=== PATIENT | male | born 1960 | race Caucasian/White ===

== ENCOUNTER 2017-10-20 17:29 | Emergency (ER) | payer OTHER ==
[2017-10-20] MEDS ORDERED: SOD CHLORIDE 0.9% 1,000 ML IV (17:47)
[2017-10-20] MEDS: NITROGLYCERIN (SL) 0.4 MG TAB SL (18:16)
[2017-10-20] MEDS: ASPIRIN 81 MG TAB PO (18:16)
[2017-10-20] MEDS: LORAZEPAM 2 MG INJ IV (18:27)
[2017-10-20] MEDS: ENALAPRILAT 1.25 MG INJ IV (18:28)
[2017-10-20 18:46] LABS: ADD MAN DIFF? NO
[2017-10-20 18:51] LABS: BASOPHIL # 0.1 10^3/ul (0.0-0.1); BASOPHILS % 1.1 % (0.0-2.0); EOSINOPHILS # 0.2 10^3/ul (0.0-0.5); HEMOGLOBIN 12.9 g/dl (14.0-18.0); LYMPHOCYTES # 2.3 10^3/ul (0.8-2.9); LYMPHOCYTES % 26.2 % (15.0-51.0); MEAN CORPUSCULAR HEMOGLOBIN 28.1 pg (29.0-33.0); MEAN CORPUSCULAR HGB CONC 33.1 g/dl (32.0-37.0); MEAN PLATELET VOLUME 9.4 fl (7.4-10.4); MONOCYTE # 0.8 10^3/ul (0.3-0.9); MONOCYTES % 8.6 % (0.0-11.0); NEUTROPHIL # 5.4 10^3/ul (1.6-7.5); NEUTROPHILS % 61.4 % (39.0-77.0); PLATELET COUNT 278 10^3/UL (140-415); RED BLOOD COUNT 4.59 10^6/ul (4.70-6.10); RED CELL DISTRIBUTION WIDTH 14.7 % (11.5-14.5)
[2017-10-20 18:51] LABS: WHITE BLOOD COUNT 8.7 10^3/ul (4.8-10.8)
[2017-10-20 19:12] LABS: ALANINE AMINOTRANSFERASE 25 IU/L (13-69); ALBUMIN/GLOBULIN RATIO 1.37; ALKALINE PHOSPHATASE 94 IU/L (42-121); ANION GAP 14 (8-16); ASPARTATE AMINO TRANSFERASE 22 IU/L (15-46); BILIRUBIN,INDIRECT 0.3 mg/dl (0-1.1); BILIRUBIN,TOTAL 0.3 mg/dl (0.2-1.3); BLOOD UREA NITROGEN 17 mg/dl (7-20); CARBON DIOXIDE 28 mmol/L (21-31); CHLORIDE 107 mmol/L (97-110); CREATININE 0.69 mg/dl (0.61-1.24); GLUCOSE 107 mg/dl (70-220); LIPASE 48 U/L (23-300); POTASSIUM 4.4 mmol/L (3.5-5.1); SODIUM 145 mmol/L (135-144); TOTAL PROTEIN 6.9 g/dl (6.1-8.1)
[2017-10-20 19:19] LABS: B-TYPE NATRIURETIC PEPTIDE 341 PG/ML (0-125)
[2017-10-20 19:29] LABS: TROPONIN-I < 0.012 ng/ml (0.000-0.120)
== END 2017-10-20 22:04 | disposition short-term general hospital (02) ==
LOC: E/R 17:29
DX: R07.9 Chest pain, unspecified (principal); I10 Essential (primary) hypertension; F15.10 Other stimulant abuse, uncomplicated; I50.23 Acute on chronic systolic (congestive) heart failure; E11.9 Type 2 diabetes mellitus without complications; J45.909 Unspecified asthma, uncomplicated; Z79.82 Long term (current) use of aspirin; Z79.84 Long term (current) use of oral hypoglycemic drugs; Z87.891 Personal history of nicotine dependence
CPT/HCPCS: 36415; 71045; 80053; 82962; 83690; 83880; 84484; 85025; 93005; 96374; 96375; 99285-25

== ENCOUNTER 2017-10-21 10:28 | Emergency (ER) | payer OTHER ==
[2017-10-21] MEDS ORDERED: ASPIRIN 325 MG TAB PO (11:00)
[2017-10-21 11:13] LABS: ADD MAN DIFF? NO
[2017-10-21 11:16] LABS: WHITE BLOOD COUNT 9.7 10^3/ul (4.8-10.8)
[2017-10-21 11:16] LABS: BASOPHIL # 0.1 10^3/ul (0.0-0.1); BASOPHILS % 0.9 % (0.0-2.0); EOSINOPHILS # 0.2 10^3/ul (0.0-0.5); HEMATOCRIT 39.2 % (42.0-52.0); HEMOGLOBIN 12.7 g/dl (14.0-18.0); LYMPHOCYTES # 2.1 10^3/ul (0.8-2.9); LYMPHOCYTES % 21.7 % (15.0-51.0); MEAN CORPUSCULAR HEMOGLOBIN 28.2 pg (29.0-33.0); MEAN CORPUSCULAR HGB CONC 32.4 g/dl (32.0-37.0); MEAN CORPUSCULAR VOLUME 87.1 fl (82.0-101.0); MEAN PLATELET VOLUME 9.4 fl (7.4-10.4); MONOCYTE # 0.8 10^3/ul (0.3-0.9); MONOCYTES % 7.8 % (0.0-11.0); NEUTROPHIL # 6.5 10^3/ul (1.6-7.5); PLATELET COUNT 284 10^3/UL (140-415); RED CELL DISTRIBUTION WIDTH 14.4 % (11.5-14.5)
[2017-10-21 11:33] LABS: ANION GAP 16 (8-16); BLOOD UREA NITROGEN 18 mg/dl (7-20); CALCIUM 9.4 mg/dl (8.4-10.2); CARBON DIOXIDE 27 mmol/L (21-31); CHLORIDE 103 mmol/L (97-110); CREATININE 0.82 mg/dl (0.61-1.24); GLUCOSE 123 mg/dl (70-220); POTASSIUM 4.5 mmol/L (3.5-5.1); SODIUM 141 mmol/L (135-144)
[2017-10-21 11:36] LABS: INR 0.88; PT RATIO 0.9
[2017-10-21 11:45] LABS: B-TYPE NATRIURETIC PEPTIDE 110 PG/ML (0-125)
[2017-10-21 11:46] LABS: TROPONIN-I < 0.012 ng/ml (0.000-0.120)
[2017-10-21 12:50] LABS: PARTIAL THROMBOPLASTIN TIME 32.1 Sec (25.0-35.0)
== END 2017-10-21 14:10 | disposition left against medical advice (07) ==
LOC: E/R 10:28
DX: M54.5 Low back pain (principal); I50.9 Heart failure, unspecified; I10 Essential (primary) hypertension; E11.9 Type 2 diabetes mellitus without complications; J45.909 Unspecified asthma, uncomplicated; Z86.59 Personal history of other mental and behavioral disorders; Z86.79 Personal history of other diseases of the circulatory system; Z87.891 Personal history of nicotine dependence
CPT/HCPCS: 71045; 80048; 83880; 84484; 85025; 85610; 85730; 93005; 99285-25

== ENCOUNTER 2017-12-24 11:28 | Emergency (ER) | payer OTHER ==
[2017-12-24 12:18] LABS: ADD MAN DIFF? NO
[2017-12-24 12:21] LABS: BASOPHIL # 0.1 10^3/ul (0.0-0.1); BASOPHILS % 0.9 % (0.0-2.0); EOSINOPHILS # 0.2 10^3/ul (0.0-0.5); EOSINOPHILS % 1.6 % (0.0-7.0); HEMATOCRIT 41.9 % (42.0-52.0); LYMPHOCYTES # 2.2 10^3/ul (0.8-2.9); LYMPHOCYTES % 21.3 % (15.0-51.0); MEAN CORPUSCULAR HEMOGLOBIN 27.8 pg (29.0-33.0); MEAN CORPUSCULAR HGB CONC 33.4 g/dl (32.0-37.0); MEAN CORPUSCULAR VOLUME 83.1 fl (82.0-101.0); MEAN PLATELET VOLUME 9.8 fl (7.4-10.4); MONOCYTE # 0.8 10^3/ul (0.3-0.9); MONOCYTES % 7.9 % (0.0-11.0); NEUTROPHIL # 6.9 10^3/ul (1.6-7.5); NEUTROPHILS % 67.5 % (39.0-77.0); PLATELET COUNT 301 10^3/UL (140-415); RED BLOOD COUNT 5.04 10^6/ul (4.70-6.10)
[2017-12-24 12:21] LABS: WHITE BLOOD COUNT 10.3 10^3/ul (4.8-10.8)
[2017-12-24] MEDS: NITROGLYCERIN (SL) 0.4 MG TAB SL (12:24)
[2017-12-24] MEDS: ASPIRIN 81 MG TAB PO (12:24)
[2017-12-24] MEDS: NITROGLYCERIN 2% 1 GM OINT PKT TD (12:25)
[2017-12-24 12:37] LABS: ANION GAP 13 (8-16); BLOOD UREA NITROGEN 12 mg/dl (7-20); CALCIUM 9.5 mg/dl (8.4-10.2); CARBON DIOXIDE 23 mmol/L (21-31); CHLORIDE 106 mmol/L (97-110); CREATININE 0.72 mg/dl (0.61-1.24); GLUCOSE 127 mg/dl (70-220); SODIUM 138 mmol/L (135-144)
[2017-12-24 12:49] LABS: TROPONIN-I 0.011 ng/ml (0.000-0.120)
== END 2017-12-24 13:00 | disposition left against medical advice (07) ==
LOC: E/R 13:00
DX: R07.9 Chest pain, unspecified (principal); I10 Essential (primary) hypertension; I50.9 Heart failure, unspecified; J45.909 Unspecified asthma, uncomplicated; F17.210 Nicotine dependence, cigarettes, uncomplicated; Z79.82 Long term (current) use of aspirin; Z79.84 Long term (current) use of oral hypoglycemic drugs
CPT/HCPCS: 36415; 71045; 80048; 84484; 85025; 93005; 99285-25

== ENCOUNTER 2017-12-25 22:20 | Emergency (ER) | payer OTHER ==
[2017-12-25] MEDS: NALOXONE 2 MG SYG IV (23:01)
[2017-12-25 23:12] LABS: ADD MAN DIFF? NO
[2017-12-25 23:16] LABS: BASOPHIL # 0.1 10^3/ul (0.0-0.1); BASOPHILS % 0.6 % (0.0-2.0); EOSINOPHILS # 0.1 10^3/ul (0.0-0.5); EOSINOPHILS % 0.9 % (0.0-7.0); HEMATOCRIT 44.4 % (42.0-52.0); HEMOGLOBIN 14.7 g/dl (14.0-18.0); LYMPHOCYTES # 1.7 10^3/ul (0.8-2.9); LYMPHOCYTES % 14.4 % (15.0-51.0); MEAN CORPUSCULAR HEMOGLOBIN 27.8 pg (29.0-33.0); MEAN CORPUSCULAR HGB CONC 33.1 g/dl (32.0-37.0); MEAN CORPUSCULAR VOLUME 84.1 fl (82.0-101.0); MEAN PLATELET VOLUME 9.4 fl (7.4-10.4); MONOCYTE # 0.7 10^3/ul (0.3-0.9); MONOCYTES % 6.1 % (0.0-11.0); NEUTROPHIL # 9.3 10^3/ul (1.6-7.5); NEUTROPHILS % 77.3 % (39.0-77.0); PLATELET COUNT 308 10^3/UL (140-415); RED BLOOD COUNT 5.28 10^6/ul (4.70-6.10)
[2017-12-25 23:33] LABS: ANION GAP 13 (8-16); BLOOD UREA NITROGEN 17 mg/dl (7-20); CALCIUM 9.9 mg/dl (8.4-10.2); CARBON DIOXIDE 26 mmol/L (21-31); CHLORIDE 107 mmol/L (97-110); CREATININE 0.78 mg/dl (0.61-1.24); GLUCOSE 143 mg/dl (70-220); POTASSIUM 4.8 mmol/L (3.5-5.1); SODIUM 141 mmol/L (135-144)
[2017-12-25 23:44] LABS: TROPONIN-I 0.016 ng/ml (0.000-0.120)
== END 2017-12-26 00:14 | disposition home or self-care (01) ==
LOC: E/R 12-26 00:14
DX: Z02.89 Encounter for other administrative examinations (principal); M54.9 Dorsalgia, unspecified; I10 Essential (primary) hypertension; I50.9 Heart failure, unspecified; E11.9 Type 2 diabetes mellitus without complications; J45.909 Unspecified asthma, uncomplicated; Z79.82 Long term (current) use of aspirin; Z79.84 Long term (current) use of oral hypoglycemic drugs; Z87.891 Personal history of nicotine dependence
CPT/HCPCS: 80048; 82962; 84484; 85025; 93005; 96374; 99284-25

== ENCOUNTER 2019-01-30 14:38 | Inpatient (IN) | payer MEDICAID, OTHER ==
[2019-01-30] MEDS: FUROSEMIDE 40 MG INJ IV (14:43)
[2019-01-30] MEDS: ASPIRIN 325 MG TAB PO ×2 (14:43)
[2019-01-30] MEDS: NITROGLYCERIN 50 MG/D5W (PMX) 250 ML IV (14:43)
[2019-01-30] MEDS ORDERED: NITROGLYCERIN 50 MG/D5W (PMX) 250 ML (14:46)
[2019-01-30] MEDS ORDERED: LORAZEPAM 2 MG INJ (14:49)
[2019-01-30 14:59] LABS: ADD MAN DIFF? NO
[2019-01-30] MEDS: LORAZEPAM 2 MG INJ IV (15:00)
[2019-01-30] MEDS ORDERED: NITROGLYCERIN (SL) 0.4 MG TAB SL ×2 (15:00→18:30)
[2019-01-30 15:01] LABS: WHITE BLOOD COUNT 9.1 10^3/ul (4.8-10.8)
[2019-01-30 15:01] LABS: BASOPHIL # 0.1 10^3/ul (0.0-0.1); BASOPHILS % 0.8 % (0.0-2.0); EOSINOPHILS # 0.2 10^3/ul (0.0-0.5); HEMATOCRIT 38.7 % (42.0-52.0); HEMOGLOBIN 12.8 g/dl (14.0-18.0); LYMPHOCYTES # 2.4 10^3/ul (0.8-2.9); LYMPHOCYTES % 26.2 % (15.0-51.0); MEAN CORPUSCULAR HEMOGLOBIN 28.3 pg (29.0-33.0); MEAN CORPUSCULAR HGB CONC 33.1 g/dl (32.0-37.0); MEAN CORPUSCULAR VOLUME 85.4 fl (82.0-101.0); MEAN PLATELET VOLUME 9.4 fl (7.4-10.4); MONOCYTE # 0.6 10^3/ul (0.3-0.9); MONOCYTES % 6.4 % (0.0-11.0); NEUTROPHIL # 5.8 10^3/ul (1.6-7.5); NEUTROPHILS % 63.9 % (39.0-77.0); PLATELET COUNT 359 10^3/UL (140-415); RED BLOOD COUNT 4.53 10^6/ul (4.70-6.10); RED CELL DISTRIBUTION WIDTH 15.3 % (11.5-14.5)
[2019-01-30 15:20] LABS: INR 0.84; PROTIME 11.6 Sec (11.9-14.9); PT RATIO 0.9
[2019-01-30 15:21] LABS: PARTIAL THROMBOPLASTIN TIME 30.3 Sec (23.0-35.0)
[2019-01-30 15:23] LABS: ALANINE AMINOTRANSFERASE 39 IU/L (13-69); ALBUMIN 4.4 g/dl (3.3-4.9); ALBUMIN/GLOBULIN RATIO 1.25; ALKALINE PHOSPHATASE 88 IU/L (42-121); ANION GAP 11 (5-13); ASPARTATE AMINO TRANSFERASE 40 IU/L (15-46); BILIRUBIN,INDIRECT 0.6 mg/dl (0-1.1); BILIRUBIN,TOTAL 0.6 mg/dl (0.2-1.3); BLOOD UREA NITROGEN 10 mg/dl (7-20); CALCIUM 10.2 mg/dl (8.4-10.2); CARBON DIOXIDE 23 mmol/L (21-31); CHLORIDE 106 mmol/L (97-110); CREATININE 0.63 mg/dl (0.61-1.24); Estimated GFR > 60 mL/min (>60); GLUCOSE 165 mg/dl (70-220); LIPASE 53 U/L (23-300); POTASSIUM 4.3 mmol/L (3.5-5.1); SODIUM 140 mmol/L (135-144); TOTAL PROTEIN 7.9 g/dl (6.1-8.1)
[2019-01-30 15:24] LABS: AADO2 Venous 100.3 mmHg; Allen Test ACCEPTAB; Blood Gas IEPAP 15/5; MODE MASK - BIPAP; MetHgb Venous 0.3 %; Sample Type Blood venous; Site OTHER; Venous COHb 4.2 %; Venous Oxygen Sat 98.4 mmHG (55.0-75.0); Venous Total Hemglobin 13.7 g/dl
[2019-01-30 15:35] LABS: B-TYPE NATRIURETIC PEPTIDE 116 PG/ML (0-125); TROPONIN-I < 0.012 ng/ml (0.000-0.120)
[2019-01-30 16:45] LABS: AMPHETAMINE/METHAMPHETAMINE Negative (NEGATIVE); BARBITURATES Negative (NEGATIVE); BENZODIAZEPINES Negative (NEGATIVE); CANNABINOIDS Negative (NEGATIVE); COCAINE Negative (NEGATIVE); OPIATES Negative (NEGATIVE)
[2019-01-30 17:05] LABS: ETHANOL < 10.0 mg/dl (0-0)
[2019-01-30] MEDS: morphine 4 MG/ML VIAL IV (17:21)
[2019-01-30] MEDS: ONDANSETRON 4 MG INJ IV (17:21)
[2019-01-30] MEDS ORDERED: ACETAMINOPHEN 325 MG TAB PO ×2 (18:00→18:30)
[2019-01-30] MEDS ORDERED: ONDANSETRON 4 MG INJ IV ×4 (18:00→22:30)
[2019-01-30] MEDS ORDERED: ALBUTEROL/IPRATROPIUM (NEB) 3 ML AMP HHN (18:30)
[2019-01-30] MEDS ORDERED: hydrALAzine 20 MG INJ IV (18:30)
[2019-01-30] MEDS ORDERED: NACL 0.9% 3 ML SYG IV (18:30)
[2019-01-30] MEDS ORDERED: DEXTROSE 50% 50 ML SYRINGE IV ×2 (19:30)
[2019-01-30] MEDS ORDERED: GLUCOSE GEL 15 GRAM TUBE BUCCAL (19:30)
[2019-01-30] MEDS ORDERED: GLUCOSE GEL 15 GRAM TUBE PO ×2 (19:30)
[2019-01-30] MEDS ORDERED: GLUCAGON 1 MG INJ IM (19:30)
[2019-01-30 19:46] LABS: FREE T4 (FREE THYROXINE) 1.44 ng/dl (0.64-1.79)
[2019-01-30] MEDS: HYDROCODONE/APAP (5/325) TAB PO (20:17)
[2019-01-30 20:22] LABS: CREATINE KINASE 317 IU/L (23-200)
[2019-01-30 20:35] LABS: CK INDEX 0.8; TROPONIN-I < 0.012 ng/ml (0.000-0.120)
[2019-01-30 20:36] LABS: CK-MB 2.68 ng/ml (0.0-2.4)
[2019-01-30] MEDS: morphine 2 MG INJ IV (21:26)
[2019-01-30 22:31] LABS: MAGNESIUM 1.5 mg/dl (1.7-2.5)
[2019-01-30 22:49] LABS: HEMOGLOBIN A1C 6.7 % (0-5.9)
[2019-01-30] MEDS: IOHEXOL 100 ML (23:25)
[2019-01-30] MEDS: SOD CHLORIDE 0.9% 100 ML (23:26)
[2019-01-30] MEDS: POTASSIUM CHLORIDE (SR) 20 MEQ TAB PO (23:38)
[2019-01-30] MEDS: HEPARIN 5,000 UNIT/1 ML VIAL SC (23:51)
[2019-01-31] MEDS: INSULIN ASPART [NOVOLOG] 3 ML PEN SC ×7 (01:00→20:41)
[2019-01-31] MEDS: morphine 2 MG INJ IV ×5 (01:46→20:47)
[2019-01-31] MEDS: ACCU-CHEK XX (01:48)
[2019-01-31 02:06] LABS: ADD MAN DIFF? NO
[2019-01-31 02:13] LABS: BASOPHIL # 0.1 10^3/ul (0.0-0.1); BASOPHILS % 1.1 % (0.0-2.0); EOSINOPHILS # 0.2 10^3/ul (0.0-0.5); EOSINOPHILS % 2.1 % (0.0-7.0); HEMATOCRIT 34.3 % (42.0-52.0); HEMOGLOBIN 11.1 g/dl (14.0-18.0); LYMPHOCYTES % 27.4 % (15.0-51.0); MEAN CORPUSCULAR HEMOGLOBIN 28.3 pg (29.0-33.0); MEAN CORPUSCULAR HGB CONC 32.4 g/dl (32.0-37.0); MEAN CORPUSCULAR VOLUME 87.5 fl (82.0-101.0); MEAN PLATELET VOLUME 9.1 fl (7.4-10.4); MONOCYTE # 0.7 10^3/ul (0.3-0.9); MONOCYTES % 9.5 % (0.0-11.0); NEUTROPHIL # 4.4 10^3/ul (1.6-7.5); NEUTROPHILS % 59.5 % (39.0-77.0); PLATELET COUNT 304 10^3/UL (140-415); RED BLOOD COUNT 3.92 10^6/ul (4.70-6.10); RED CELL DISTRIBUTION WIDTH 15.6 % (11.5-14.5)
[2019-01-31 02:13] LABS: WHITE BLOOD COUNT 7.5 10^3/ul (4.8-10.8)
[2019-01-31 02:37] LABS: ANION GAP 7 (5-13); BLOOD UREA NITROGEN 13 mg/dl (7-20); CALCIUM 9.1 mg/dl (8.4-10.2); CARBON DIOXIDE 29 mmol/L (21-31); CHLORIDE 104 mmol/L (97-110); CREATINE KINASE 226 IU/L (23-200); CREATININE 0.73 mg/dl (0.61-1.24); Estimated GFR > 60 mL/min (>60); GLUCOSE 131 mg/dl (70-220); MAGNESIUM 1.8 mg/dl (1.7-2.5); PHOSPHORUS 3.9 mg/dl (2.5-4.9); POTASSIUM 3.9 mmol/L (3.5-5.1); SODIUM 140 mmol/L (135-144)
[2019-01-31 02:38] LABS: CHOLESTEROL 125 mg/dl (100-200)
[2019-01-31 02:38] LABS: CHOL/HDL RATIO 4.8 RATIO; HDL CHOLESTEROL 26 mg/dl (28-71); LDL CHOLESTEROL,CALCULATED 74 mg/dl; TRIGLYCERIDES 126 mg/dl (0-149)
[2019-01-31 02:45] LABS: CK-MB 2.35 ng/ml (0.0-2.4); TROPONIN-I < 0.012 ng/ml (0.000-0.120)
[2019-01-31 02:47] LABS: HEMOGLOBIN A1C 6.6 % (0-5.9)
[2019-01-31] MEDS: FUROSEMIDE 40 MG INJ IV ×2 (06:55→17:32)
[2019-01-31] MEDS: PANTOPRAZOLE 40 MG INJ IV (06:55)
[2019-01-31] MEDS: SPIRONOLACTONE 25 MG TAB PO (09:23)
[2019-01-31] MEDS: ASPIRIN (EC) 325 MG TAB PO (09:23)
[2019-01-31] MEDS: MAGNESIUM SULFATE 2 GM/50 ML 50 ML IVPB (09:23)
[2019-01-31] MEDS: ENALAPRIL 5 MG TAB PO (09:23)
[2019-01-31] MEDS: NICOTINE (7 MG/24 HR) PATCH TRANSDERM (09:24)
[2019-01-31 09:28] LABS: CREATINE KINASE 234 IU/L (23-200)
[2019-01-31 09:38] LABS: TROPONIN-I < 0.012 ng/ml (0.000-0.120)
[2019-01-31] MEDS: HEPARIN 5,000 UNIT/1 ML VIAL SC ×2 (09:38→21:17)
[2019-01-31 09:41] LABS: CK-MB 2.42 ng/ml (0.0-2.4)
[2019-01-31 10:42] LABS: AMPHETAMINE/METHAMPHETAMINE Negative (NEGATIVE); BARBITURATES Negative (NEGATIVE); BENZODIAZEPINES Negative (NEGATIVE); CANNABINOIDS Negative (NEGATIVE); COCAINE Negative (NEGATIVE); OPIATES Positive (NEGATIVE)
[2019-01-31] MEDS: DOCUSATE SODIUM 100 MG CAP PO (20:47)
[2019-02-01] MEDS: morphine 2 MG INJ IV ×6 (00:45→21:53)
[2019-02-01] MEDS: ACCU-CHEK XX (02:00)
[2019-02-01 05:59] LABS: ADD MAN DIFF? NO
[2019-02-01] MEDS: FUROSEMIDE 40 MG INJ IV ×2 (06:03→17:46)
[2019-02-01] MEDS: PANTOPRAZOLE (EC) 40 MG TAB PO (06:03)
[2019-02-01 06:07] LABS: WHITE BLOOD COUNT 7.3 10^3/ul (4.8-10.8)
[2019-02-01 06:07] LABS: BASOPHIL # 0.1 10^3/ul (0.0-0.1); BASOPHILS % 0.8 % (0.0-2.0); EOSINOPHILS # 0.2 10^3/ul (0.0-0.5); EOSINOPHILS % 2.2 % (0.0-7.0); HEMATOCRIT 36.5 % (42.0-52.0); HEMOGLOBIN 11.8 g/dl (14.0-18.0); LYMPHOCYTES # 1.7 10^3/ul (0.8-2.9); LYMPHOCYTES % 23.7 % (15.0-51.0); MEAN CORPUSCULAR HEMOGLOBIN 28.4 pg (29.0-33.0); MEAN CORPUSCULAR HGB CONC 32.3 g/dl (32.0-37.0); MEAN CORPUSCULAR VOLUME 87.7 fl (82.0-101.0); MEAN PLATELET VOLUME 9.4 fl (7.4-10.4); MONOCYTE # 0.8 10^3/ul (0.3-0.9); MONOCYTES % 10.3 % (0.0-11.0); NEUTROPHIL # 4.5 10^3/ul (1.6-7.5); NEUTROPHILS % 62.4 % (39.0-77.0); PLATELET COUNT 319 10^3/UL (140-415); RED BLOOD COUNT 4.16 10^6/ul (4.70-6.10); RED CELL DISTRIBUTION WIDTH 15.3 % (11.5-14.5)
[2019-02-01 06:36] LABS: ANION GAP 5 (5-13); BLOOD UREA NITROGEN 21 mg/dl (7-20); CALCIUM 9.2 mg/dl (8.4-10.2); CARBON DIOXIDE 30 mmol/L (21-31); CHLORIDE 104 mmol/L (97-110); CREATININE 0.71 mg/dl (0.61-1.24); Estimated GFR > 60 mL/min (>60); GLUCOSE 115 mg/dl (70-220); POTASSIUM 3.6 mmol/L (3.5-5.1); SODIUM 139 mmol/L (135-144)
[2019-02-01] MEDS: INSULIN ASPART [NOVOLOG] 3 ML PEN SC ×4 (08:11→20:20)
[2019-02-01] MEDS: NICOTINE (7 MG/24 HR) PATCH TRANSDERM (08:18)
[2019-02-01] MEDS: ASPIRIN (EC) 325 MG TAB PO (08:18)
[2019-02-01] MEDS: SPIRONOLACTONE 25 MG TAB PO (08:19)
[2019-02-01] MEDS: ENALAPRIL 5 MG TAB PO (08:33)
[2019-02-01] MEDS: MAGNESIUM SULFATE 2 GM/50 ML 50 ML IVPB (08:33)
[2019-02-01] MEDS: DOCUSATE SODIUM 100 MG CAP PO ×3 (08:34→20:17)
[2019-02-01] MEDS: HEPARIN 5,000 UNIT/1 ML VIAL SC ×2 (08:41→20:18)
[2019-02-01] MEDS: GABAPENTIN 100 MG CAP GTB (20:16)
[2019-02-02] MEDS: ACCU-CHEK XX (02:00)
[2019-02-02] MEDS: morphine 2 MG INJ IV ×5 (02:10→20:39)
[2019-02-02 06:14] LABS: ADD MAN DIFF? NO
[2019-02-02] MEDS: FUROSEMIDE 40 MG INJ IV ×2 (06:14→17:06)
[2019-02-02] MEDS: PANTOPRAZOLE (EC) 40 MG TAB PO (06:14)
[2019-02-02 06:20] LABS: BASOPHIL # 0.1 10^3/ul (0.0-0.1); BASOPHILS % 0.7 % (0.0-2.0); EOSINOPHILS # 0.2 10^3/ul (0.0-0.5); EOSINOPHILS % 2.4 % (0.0-7.0); HEMOGLOBIN 11.9 g/dl (14.0-18.0); LYMPHOCYTES # 1.9 10^3/ul (0.8-2.9); LYMPHOCYTES % 23.2 % (15.0-51.0); MEAN CORPUSCULAR HEMOGLOBIN 27.9 pg (29.0-33.0); MEAN CORPUSCULAR HGB CONC 32.2 g/dl (32.0-37.0); MEAN CORPUSCULAR VOLUME 86.7 fl (82.0-101.0); MEAN PLATELET VOLUME 9.4 fl (7.4-10.4); MONOCYTE # 0.9 10^3/ul (0.3-0.9); MONOCYTES % 11.3 % (0.0-11.0); NEUTROPHIL # 4.9 10^3/ul (1.6-7.5); NEUTROPHILS % 61.7 % (39.0-77.0); PLATELET COUNT 293 10^3/UL (140-415); RED BLOOD COUNT 4.27 10^6/ul (4.70-6.10); RED CELL DISTRIBUTION WIDTH 15.3 % (11.5-14.5)
[2019-02-02 06:44] LABS: ANION GAP 6 (5-13); BLOOD UREA NITROGEN 23 mg/dl (7-20); CALCIUM 9.4 mg/dl (8.4-10.2); CARBON DIOXIDE 30 mmol/L (21-31); CHLORIDE 103 mmol/L (97-110); CREATININE 0.73 mg/dl (0.61-1.24); Estimated GFR > 60 mL/min (>60); GLUCOSE 127 mg/dl (70-220); POTASSIUM 3.7 mmol/L (3.5-5.1); SODIUM 139 mmol/L (135-144)
[2019-02-02] MEDS: INSULIN ASPART [NOVOLOG] 3 ML PEN SC ×4 (07:50→21:00)
[2019-02-02] MEDS: SPIRONOLACTONE 25 MG TAB PO (08:44)
[2019-02-02] MEDS: ENALAPRIL 5 MG TAB PO (08:44)
[2019-02-02] MEDS: GABAPENTIN 100 MG CAP GTB ×3 (08:45→20:33)
[2019-02-02] MEDS: ASPIRIN (EC) 325 MG TAB PO (08:45)
[2019-02-02] MEDS: DOCUSATE SODIUM 100 MG CAP PO ×2 (08:45→20:31)
[2019-02-02] MEDS: NICOTINE (7 MG/24 HR) PATCH TRANSDERM (08:47)
[2019-02-02] MEDS: HEPARIN 5,000 UNIT/1 ML VIAL SC ×2 (08:50→21:02)
[2019-02-02] MEDS: LORAZEPAM 2 MG INJ IV (10:42)
[2019-02-03] MEDS: morphine 2 MG INJ IV ×3 (00:48→10:13)
[2019-02-03] MEDS: ACCU-CHEK XX (02:00)
[2019-02-03] MEDS: FUROSEMIDE 40 MG INJ IV (05:36)
[2019-02-03] MEDS: PANTOPRAZOLE (EC) 40 MG TAB PO (05:36)
[2019-02-03 06:10] LABS: ADD MAN DIFF? NO
[2019-02-03 06:19] LABS: WHITE BLOOD COUNT 7.2 10^3/ul (4.8-10.8)
[2019-02-03 06:19] LABS: BASOPHIL # 0.1 10^3/ul (0.0-0.1); BASOPHILS % 0.8 % (0.0-2.0); EOSINOPHILS # 0.2 10^3/ul (0.0-0.5); HEMATOCRIT 35.3 % (42.0-52.0); HEMOGLOBIN 11.6 g/dl (14.0-18.0); LYMPHOCYTES # 2.2 10^3/ul (0.8-2.9); MEAN CORPUSCULAR HEMOGLOBIN 28.4 pg (29.0-33.0); MEAN CORPUSCULAR HGB CONC 32.9 g/dl (32.0-37.0); MEAN CORPUSCULAR VOLUME 86.3 fl (82.0-101.0); MEAN PLATELET VOLUME 9.8 fl (7.4-10.4); MONOCYTE # 0.7 10^3/ul (0.3-0.9); MONOCYTES % 10.2 % (0.0-11.0); NEUTROPHILS % 55.3 % (39.0-77.0); PLATELET COUNT 297 10^3/UL (140-415); RED BLOOD COUNT 4.09 10^6/ul (4.70-6.10); RED CELL DISTRIBUTION WIDTH 15.1 % (11.5-14.5)
[2019-02-03 06:53] LABS: ANION GAP 7 (5-13); BLOOD UREA NITROGEN 21 mg/dl (7-20); CALCIUM 9.8 mg/dl (8.4-10.2); CARBON DIOXIDE 27 mmol/L (21-31); CHLORIDE 101 mmol/L (97-110); Estimated GFR > 60 mL/min (>60); GLUCOSE 217 mg/dl (70-220); POTASSIUM 3.7 mmol/L (3.5-5.1); SODIUM 135 mmol/L (135-144)
[2019-02-03] MEDS: INSULIN ASPART [NOVOLOG] 3 ML PEN SC ×2 (08:12→11:53)
[2019-02-03] MEDS: ASPIRIN (EC) 325 MG TAB PO (08:37)
[2019-02-03] MEDS: GABAPENTIN 100 MG CAP GTB ×2 (08:37→12:25)
[2019-02-03] MEDS: SPIRONOLACTONE 25 MG TAB PO (08:37)
[2019-02-03] MEDS: ENALAPRIL 5 MG TAB PO (08:37)
[2019-02-03] MEDS: DOCUSATE SODIUM 100 MG CAP PO (08:38)
[2019-02-03] MEDS: HEPARIN 5,000 UNIT/1 ML VIAL SC (08:44)
[2019-02-03] MEDS: MAGNESIUM HYDROXIDE 30ML CUP PO (10:01)
[2019-02-03] MEDS: NICOTINE (7 MG/24 HR) PATCH TRANSDERM (10:04)
[2019-02-03] MEDS: metFORMIN (XR) 500 MG TAB PO (11:38)
[2019-02-03] MEDS: REPAGLINIDE 1 MG TAB PO (12:25)
[2019-02-03] MEDS: LORAZEPAM 2 MG INJ IV (13:18)
[2019-02-04] MEDS ORDERED: GLIMEPIRIDE 2 MG TAB PO (07:00)
== END 2019-02-03 14:39 | disposition home or self-care (01) | DRG 291 ==
LOC: E/R 14:38 → 6WM 17:53
PROC: 5A09357 Assistance with Respiratory Ventilation, Less than 24 Consecutive Hours, Continuous Positive Airway Pressure (ICD-10-PCS; principal; 2019-01-30)
DX: I11.0 Hypertensive heart disease with heart failure (principal); I50.21 Acute systolic (congestive) heart failure; I16.1 Hypertensive emergency; I42.9 Cardiomyopathy, unspecified; J44.9 Chronic obstructive pulmonary disease, unspecified; E66.9 Obesity, unspecified; Z68.36 Body mass index [BMI] 36.0-36.9, adult; Z71.3 Dietary counseling and surveillance
CPT/HCPCS: 36415; 70450; 70496; 70498; 71045; 72040; 72072; 72100; 72141; 72148; 72170; 73030-RT; 80048; 80053; 80061; 80307; 82550; 82553; 82803; 82962; 83036; 83690; 83735; 83880; 84100; 84439; 84443; 84484; 85025; 85610; 85730; 87536; 92610; 93005; 93306; 94660; 95819; 96374; 96375; 97110; 97116; 97162; 97167; 99285-25

== ENCOUNTER 2019-02-12 04:46 | Inpatient (IN) | payer MEDICAID ==
[2019-02-12] MEDS ORDERED: ACETAMINOPHEN 325 MG TAB PO ×2 (05:30→13:00)
[2019-02-12] MEDS ORDERED: ONDANSETRON 4 MG INJ IV (05:30)
[2019-02-12 05:42] LABS: ADD MAN DIFF? NO
[2019-02-12 05:47] LABS: BASOPHIL # 0.1 10^3/ul (0.0-0.1); BASOPHILS % 0.8 % (0.0-2.0); EOSINOPHILS # 0.3 10^3/ul (0.0-0.5); EOSINOPHILS % 3.1 % (0.0-7.0); HEMATOCRIT 34.1 % (42.0-52.0); HEMOGLOBIN 11.2 g/dl (14.0-18.0); LYMPHOCYTES # 2.5 10^3/ul (0.8-2.9); LYMPHOCYTES % 29.4 % (15.0-51.0); MEAN CORPUSCULAR HEMOGLOBIN 28.9 pg (29.0-33.0); MEAN CORPUSCULAR HGB CONC 32.8 g/dl (32.0-37.0); MEAN CORPUSCULAR VOLUME 88.1 fl (82.0-101.0); MEAN PLATELET VOLUME 9.7 fl (7.4-10.4); MONOCYTE # 0.8 10^3/ul (0.3-0.9); MONOCYTES % 9.1 % (0.0-11.0); NEUTROPHIL # 4.7 10^3/ul (1.6-7.5); NEUTROPHILS % 56.3 % (39.0-77.0); PLATELET COUNT 211 10^3/UL (140-415); RED BLOOD COUNT 3.87 10^6/ul (4.70-6.10); RED CELL DISTRIBUTION WIDTH 15.4 % (11.5-14.5)
[2019-02-12 05:47] LABS: WHITE BLOOD COUNT 8.4 10^3/ul (4.8-10.8)
[2019-02-12 06:16] LABS: ALANINE AMINOTRANSFERASE 38 IU/L (13-69); ALBUMIN 3.6 g/dl (3.3-4.9); ALKALINE PHOSPHATASE 85 IU/L (42-121); ANION GAP 7 (5-13); ASPARTATE AMINO TRANSFERASE 29 IU/L (15-46); BILIRUBIN,INDIRECT 0.1 mg/dl (0-1.1); BILIRUBIN,TOTAL 0.1 mg/dl (0.2-1.3); BLOOD UREA NITROGEN 13 mg/dl (7-20); CALCIUM 9.2 mg/dl (8.4-10.2); CARBON DIOXIDE 23 mmol/L (21-31); CHLORIDE 109 mmol/L (97-110); Estimated GFR > 60 mL/min (>60); GLUCOSE 143 mg/dl (70-220); SODIUM 139 mmol/L (135-144); TOTAL PROTEIN 6.6 g/dl (6.1-8.1)
[2019-02-12 06:27] LABS: B-TYPE NATRIURETIC PEPTIDE 62 PG/ML (0-125); TROPONIN-I < 0.012 ng/ml (0.000-0.120)
[2019-02-12] MEDS ORDERED: NITROGLYCERIN (SL) 0.4 MG TAB SL (13:00)
[2019-02-12] MEDS ORDERED: DEXTROSE 50% 50 ML SYRINGE IV ×2 (13:30)
[2019-02-12] MEDS ORDERED: GLUCOSE GEL 15 GRAM TUBE BUCCAL (13:30)
[2019-02-12] MEDS ORDERED: GLUCAGON 1 MG INJ IM (13:30)
[2019-02-12] MEDS ORDERED: GLUCOSE GEL 15 GRAM TUBE PO ×2 (13:30)
[2019-02-12] MEDS: ASPIRIN 325 MG TAB PO (13:47)
[2019-02-12] MEDS: morphine 2 MG INJ IV ×3 (13:47→22:25)
[2019-02-12] MEDS: INSULIN ASPART [NOVOLOG] 3 ML PEN SC ×2 (18:19→20:57)
[2019-02-12] MEDS: GABAPENTIN 100 MG CAP PO (20:56)
[2019-02-13] MEDS: morphine 2 MG INJ IV ×5 (02:18→20:23)
[2019-02-13] MEDS: INSULIN ASPART [NOVOLOG] 3 ML PEN SC ×4 (08:16→20:33)
[2019-02-13] MEDS: ENALAPRIL 5 MG TAB PO (08:18)
[2019-02-13] MEDS: SPIRONOLACTONE 50 MG TAB PO (08:19)
[2019-02-13] MEDS: PANTOPRAZOLE (EC) 40 MG TAB PO (08:19)
[2019-02-13] MEDS: ASPIRIN 325 MG TAB PO (08:19)
[2019-02-13] MEDS: GABAPENTIN 100 MG CAP PO ×3 (08:19→20:23)
[2019-02-13 09:09] LABS: TROPONIN-I < 0.012 ng/ml (0.000-0.120)
[2019-02-13] MEDS: FUROSEMIDE 20 MG INJ IV (17:54)
[2019-02-13] MEDS: LISINOPRIL 5 MG TAB PO (20:23)
[2019-02-14] MEDS: morphine 2 MG INJ IV ×6 (00:24→20:43)
[2019-02-14 07:34] LABS: TROPONIN-I < 0.012 ng/ml (0.000-0.120)
[2019-02-14] MEDS: INSULIN ASPART [NOVOLOG] 3 ML PEN SC ×4 (07:55→20:54)
[2019-02-14] MEDS: PANTOPRAZOLE (EC) 40 MG TAB PO (08:34)
[2019-02-14] MEDS: SPIRONOLACTONE 50 MG TAB PO (08:34)
[2019-02-14] MEDS: LISINOPRIL 5 MG TAB PO ×2 (08:34→20:49)
[2019-02-14] MEDS: GABAPENTIN 100 MG CAP PO ×3 (08:34→20:49)
[2019-02-14] MEDS: ASPIRIN 81 MG TAB PO (08:44)
[2019-02-14] MEDS: FUROSEMIDE 20 MG TAB PO (14:26)
[2019-02-14 14:37] LABS: HEMOGLOBIN A1C 6.5 % (0-5.9)
[2019-02-15] MEDS: morphine 2 MG INJ IV ×5 (00:42→20:55)
[2019-02-15 06:42] LABS: ANION GAP 6 (5-13); BLOOD UREA NITROGEN 13 mg/dl (7-20); CALCIUM 9.7 mg/dl (8.4-10.2); CARBON DIOXIDE 27 mmol/L (21-31); CHLORIDE 104 mmol/L (97-110); CREATININE 0.62 mg/dl (0.61-1.24); Estimated GFR > 60 mL/min (>60); GLUCOSE 190 mg/dl (70-220); POTASSIUM 4.5 mmol/L (3.5-5.1); SODIUM 137 mmol/L (135-144)
[2019-02-15 06:53] LABS: TROPONIN-I < 0.012 ng/ml (0.000-0.120)
[2019-02-15] MEDS: INSULIN ASPART [NOVOLOG] 3 ML PEN SC ×4 (07:54→20:20)
[2019-02-15] MEDS: ASPIRIN 81 MG TAB PO (08:29)
[2019-02-15] MEDS: SPIRONOLACTONE 50 MG TAB PO (08:29)
[2019-02-15] MEDS: PANTOPRAZOLE (EC) 40 MG TAB PO (08:30)
[2019-02-15] MEDS: LISINOPRIL 5 MG TAB PO (08:30)
[2019-02-15] MEDS: GABAPENTIN 100 MG CAP PO ×3 (08:30→20:05)
[2019-02-15] MEDS: LISINOPRIL 20 MG TAB PO (12:26)
[2019-02-15] MEDS ORDERED: hydrALAzine 20 MG INJ IV (12:30)
[2019-02-16] MEDS: morphine 2 MG INJ IV ×4 (00:46→13:02)
[2019-02-16] MEDS: INSULIN ASPART [NOVOLOG] 3 ML PEN SC ×2 (08:00→11:55)
[2019-02-16] MEDS: LISINOPRIL 5 MG TAB PO (08:32)
[2019-02-16] MEDS: PANTOPRAZOLE (EC) 40 MG TAB PO (08:32)
[2019-02-16] MEDS: SPIRONOLACTONE 50 MG TAB PO (08:32)
[2019-02-16] MEDS: ASPIRIN 81 MG TAB PO (08:32)
[2019-02-16] MEDS: GABAPENTIN 100 MG CAP PO ×2 (08:32→12:17)
== END 2019-02-16 14:17 | disposition home or self-care (01) | DRG 292 ==
LOC: E/R 04:46 → TEL 05:31
PROVIDERS: Family Medicine
DX: I11.0 Hypertensive heart disease with heart failure (principal); I69.354 Hemiplegia and hemiparesis following cerebral infarction affecting left non-dominant side; I50.40 Unspecified combined systolic (congestive) and diastolic (congestive) heart failure; E78.5 Hyperlipidemia, unspecified; E11.9 Type 2 diabetes mellitus without complications; F17.200 Nicotine dependence, unspecified, uncomplicated; I10 Essential (primary) hypertension; N40.0 Benign prostatic hyperplasia without lower urinary tract symptoms; M54.2 Cervicalgia; R07.9 Chest pain, unspecified; R10.9 Unspecified abdominal pain; Z91.14 Patient's other noncompliance with medication regimen; Z98.1 Arthrodesis status; Z59.0 Homelessness; Z79.82 Long term (current) use of aspirin; Z79.84 Long term (current) use of oral hypoglycemic drugs
CPT/HCPCS: 71045; 80048; 80053; 82962; 83036; 83880; 84484; 85025; 93005; 99285-25; G0378

== ENCOUNTER 2019-02-26 23:57 | Emergency (ER) | payer MEDICAID ==
[2019-02-27] MEDS: ASPIRIN 81 MG TAB PO (00:35)
[2019-02-27] MEDS: FUROSEMIDE 40 MG INJ IV (01:50)
== END 2019-02-27 05:00 | disposition home or self-care (01) ==
LOC: E/R 23:57
DX: I50.9 Heart failure, unspecified (principal); I11.0 Hypertensive heart disease with heart failure; E11.65 Type 2 diabetes mellitus with hyperglycemia; D64.9 Anemia, unspecified; I63.9 Cerebral infarction, unspecified; Z79.82 Long term (current) use of aspirin; Z79.84 Long term (current) use of oral hypoglycemic drugs; Z87.891 Personal history of nicotine dependence
CPT/HCPCS: 36415; 71045; 80048; 80307; 83880; 84484; 85025; 85610; 93005; 96374; 99285-25